=== PATIENT | male | born 1930 | race Caucasian/White ===

== ENCOUNTER 2018-03-04 11:19 | Emergency (ER) | payer OTHER, MEDICARE ==
[~2018-03-04] VITALS: Ht 172.7 cm; Wt 68.9 kg
[2018-03-04 11:24] VITALS: BP 161/81
--- NOTE | 2018-03-04 12:55 | CT SCAN REPORT ---
EXAMINATION: CT HEAD W/O IV CONTRAST CT CERVICAL SPINE W/O IV CONTRAST CLINICAL INFORMATION: History of fall with head strike and neck pain. COMPARISON: None TECHNIQUE: Head - Contiguous axial imaging of the head was performed from the skull base to the vertex without the administration of intravenous contrast, and axial images are reconstructed at 0.625 mm, 2.5 mm and 5 mm slice thickness. Cervical spine - A volumetric, helical CT acquisition of the cervical spine was obtained without contrast; in addition to the standard set of axial images, multiplanar reformatted images were provided in the coronal and sagittal imaging planes. DLP: 946 mGy-cm (total) FINDINGS: HEAD: No acute intracranial hemorrhage, extraaxial fluid collection, mass or midline shift. Moderate atrophy of cerebral and cerebellar hemispheres with commensurate prominence of ventricles and sulci. No hydrocephalus. There is patchy hypoattenuation within supratentorial white matter consistent with chronic, mild microangiopathy. Prominent perivascular spaces are seen inferior to the basal ganglia. The millan-white matter differentiation is well preserved; no acute major vascular territory infarction. Atherosclerotic calcification of cavernous carotid arteries. The calvarium is intact and the mastoid air cells, middle ear cavities and paranasal sinuses are well aerated. The temporomandibular joints, orbits and globes are unremarkable. CERVICAL SPINE: Bones appear diffusely osteoporotic. The cervical spine has normal lordotic curvature. The occipital condyles, C1 and C2 lateral masses, dens and atlantodental articulation are intact. There is degenerative osseous spurring at the atlantodental articulation. The vertebra are normal in height. No fractures in anterior or posterior elements. There is multilevel disc degeneration and osteophyte formation of the cervical spine. Multilevel facet osteoarthritis, as well, including severe right-sided facet osteoarthritis of C2-C3 and moderate left-sided facet osteoarthritis of C7-T1. There is minimal degenerative retrolisthesis at C4-C5 and minimal degenerative anterolisthesis at C7-T1. No prevertebral soft tissue swelling. The posterior disc osteophyte complex at C4-C5 produces mild narrowing of the central spinal canal. The uncovertebral joint hypertrophy at C4-C5 produces bilateral neural foraminal stenosis. At C5-C6, there is moderate degenerative disc disease and predominantly right-sided uncovertebral joint hypertrophy producing moderate right-sided neural foraminal stenosis. The visualized lung apices are clear. Thyroid gland is atrophied. No soft tissue hematoma in the neck. The sap pp consultant image shows a left pectoral region cardiac pacemaker with transvenous leads extending to the right atrium and ventricle. IMPRESSION: 1. No acute intracranial pathology. 2. Moderate cerebral atrophy and chronic, mild small vessel ischemic changes in supratentorial white matter. 3. No fracture or traumatic subluxation in the degenerated cervical spine.
--- NOTE | 2018-03-04 13:04 | ED MVC/FALL/TRAUMA COMPLAINT ---
History of Present Illness General Chief Complaint: Fall Stated Complaint: S/P FALL HEAD INJURY Source: patient, family Exam Limitations: no limitations Vital Signs & Intake/Output Vital Signs & Intake/Output ED Intake and Output 03/05 0000 03/04 1200 Intake Total Output Total Balance Patient 152 lb Weight Weight Reported by Patient Measurement Method Triage Note: PT TO ED FOR C/C HEAD PAIN AND BRUISE S/P MECHANICAL TRIP AND FALL YESTERDAY. DENIES DIZZINESS, CHANGE IN VISION. -BLOOD THINNERS, -CSPINE TENDERNESS. Triage Nurses Notes Reviewed? yes Onset: Abrupt Duration: day(s): (1), constant, continues in ED Timing: single episode today Severity: mild, moderate Severity Numbers: 7 Injuries/Fall Location: head Method of Injury: fall Loss of Consciousness: no loss of consciousness No Modifying Factors: none HPI: 87-year-old male history of CHF and hypertension presents for evaluation after a fall. Patient reports that he tripped and fell forward hitting the forehead. No loss of consciousness no other injuries. pt was able to get up on his own. He reports he has a mild headache. No blood thinners no changes in vision. He' s been walking without difficulty. He does report some mild neck pain. No numbness or tingling no chest pain shortness of breath. There is no dizziness or lightheadedness before the fall. (Jayesh Hanley) Past History Travel History Traveled to [place] past 21 day No Medical History Any Pertinent Medical History? see below for history Cardiovascular: CHF, hypertension Surgical History Surgical History: non-contributory Psychosocial History What is your primary language Slovak Tobacco Use: Never used ETOH Use: denies use Illicit Drug Use: denies illicit drug use Family History Hx Contributory? No (Jayesh Hanley) Review of Systems Review of Systems Constitutional: Reports: no symptoms. Eyes: Reports: no symptoms. Ears, Nose, Throat, Mouth: Reports: no symptoms. Respiratory: Reports: no symptoms. Cardiovascular: Reports: no symptoms. Gastrointestinal/Abdominal: Reports: no symptoms. Genitourinary: Reports: no symptoms. Musculoskeletal: Reports: see HPI, muscle pain, muscle stiffness, neck pain. Skin: Reports: no symptoms. Neurological/Psychological: Reports: headache. All Other Systems: Reviewed and Negative (Jayesh Hanley) Physical Exam Physical Exam General Appearance: well developed/nourished, no apparent distress, alert, awake Head: there is a contusion to the left side of the forehead. No abrasions. No scalp hematomas or lacerations. Eyes: Bilateral: normal appearance, PERRL, EOMI. Ears, Nose, Throat, Mouth: moist mucous membrane, Tympanic normal Neck: normal inspection, supple, full range of motion, paraspinous muscle tender (bilaterally), no midline tenderness, paraspinous muscles are tender to palpation bilaterally no tenderness of the clavicles or acromioclavicular jointno tenderness of the scapulas Respiratory: normal breath sounds, chest non-tender, no respiratory distress, lungs clear Cardiovascular: regular rate/rhythm, normal peripheral pulses Peripheral Pulses: 2+ radial (R), 2+ radial (L) Gastrointestinal: soft, non-tender Back: normal inspection, normal range of motion, no vertebral tenderness Extremities: normal range of motion, no joint swelling or pain Neurologic/Psych: no motor/sensory deficits, awake, alert, oriented x 3, normal gait, normal mood/affect Skin: intact, normal color, warm/dry Core Measures ACS in differential dx? No CVA/TIA Diagnosis No Sepsis Present: No Sepsis Focused Exam Completed? No (Darrion MACHADO,Jayesh) Progress Differential Diagnosis: C/T/L spine injury, ext injury, ICH, pelvis injury, pnemothorax, spinal cord injury, concussion, contusion Plan of Care: Patient is here after a fall with head strike. The fall was mechanical. Patient has some bruising to the forehead. No blood thinners. No other signs of trauma. A CT scan of the head and cervical spine was obtained and is negative for acute trauma. Patient has a steady gait. Mental status is at baseline. Advised rest ice and Tylenol for pain. Follow-up with primary care doctor discussed return precautions patient agrees the plan Diagnostic Imaging: Viewed by Me: CT Scan. Discussed w/RAD: CT Scan. Radiology Impression: PATIENT: RUSTY GOINS PRESENT AGE: 87 PATIENT ACCOUNT NO: [id number] : [birth year] LOCATION: [facility] ORDERING PHYSICIAN: Jayesh MACHADO SERVICE DATE: 03/04/18 EXAM TYPE: CAT - CT CERV SPINE WO IV CONTRAST; CT HEAD WO IV CONTRAST EXAMINATION: CT HEAD W/O IV CONTRAST CT CERVICAL SPINE W/O IV CONTRAST CLINICAL INFORMATION: History of fall with head strike and neck pain. COMPARISON: None TECHNIQUE: Head - Contiguous axial imaging of the head was performed from the skull base to the vertex without the administration of intravenous contrast, and axial images are reconstructed at 0.625 mm, 2.5 mm and 5 mm slice thickness. Cervical spine - A volumetric, helical CT acquisition of the cervical spine was obtained without contrast; in addition to the standard set of axial images, multiplanar reformatted images were provided in the coronal and sagittal imaging planes. DLP : 946 mGy-cm (total) FINDINGS: HEAD: No acute intracranial hemorrhage, extraaxial fluid collection, mass or midline shift. Moderate atrophy of cerebral and cerebellar hemispheres with commensurate prominence of ventricles and sulci. No hydrocephalus. There is patchy hypoattenuation within supratentorial white matter consistent with chronic, mild microangiopathy. Prominent perivascular spaces are seen inferior to the basal ganglia. The millan-white matter differentiation is well preserved; no acute major vascular territory infarction. Atherosclerotic calcification of cavernous carotid arteries. The calvarium is intact and the mastoid air cells, middle ear cavities and paranasal sinuses are well aerated. The temporomandibular joints, orbits and globes are unremarkable. CERVICAL SPINE: Bones appear diffusely osteoporotic. The cervical spine has normal lordotic curvature. The occipital condyles, C1 and C2 lateral masses, dens and atlantodental articulation are intact. There is degenerative osseous spurring at the atlantodental articulation. The vertebra are normal in height. No fractures in anterior or posterior elements. There is multilevel disc degeneration and osteophyte formation of the cervical spine. Multilevel facet osteoarthritis, as well, including severe right-sided facet osteoarthritis of C2 -C3 and moderate left-sided facet osteoarthritis of C7-T1. There is minimal degenerative retrolisthesis at C4-C5 and minimal degenerative anterolisthesis at C7-T1. No prevertebral soft tissue swelling. The posterior disc osteophyte complex at C4-C5 produces mild narrowing of the central spinal canal. The uncovertebral joint hypertrophy at C4-C5 produces bilateral neural foraminal stenosis. At C5-C6, there is moderate degenerative disc disease and predominantly right-sided uncovertebral joint hypertrophy producing moderate right-sided neural foraminal stenosis. The visualized lung apices are clear. Thyroid gland is atrophied. No soft tissue hematoma in the neck. The nurse staff community health image shows a left pectoral region cardiac pacemaker with transvenous leads extending to the right atrium and ventricle. IMPRESSION: 1. No acute intracranial pathology. 2. Moderate cerebral atrophy and chronic, mild small vessel ischemic changes in supratentorial white matter. 3. No fracture or traumatic subluxation in the degenerated cervical spine. DICTATED BY: Clemente Rhoades MD DATE/TIME DICTATED:03/04/181239 CONTINUITY EDITOR:MARION DATE/TIME TRANSCRIBED:1239 CONFIDENTIAL, DO NOT COPY WITHOUT APPROPRIATE AUTHORIZATION. (Jayesh Hanley) Departure Departure Disposition: HOME OR SELF CARE Condition: Stable Clinical Impression Primary Impression: Head injury Qualifiers: Encounter type: initial encounter Qualified Code: S09.90XA - Unspecified injury of head, initial encounter Referrals: Evelin Triana MD (PCP/Family) Additional Instructions: Rest, Tylenol for pain follow-up with your doctor for recheck return with any concerns. Departure Forms: Customer Survey General Discharge Information (Jayesh Hanley) PA/BOAT PULLER Co-Sign Statement Statement: ED Attending supervision documentation- [x] I saw and evaluated the patient. I have also reviewed all the pertinent lab results and diagnostic results. I agree with the findings and the plan of care as documented in the PA's/BOAT PULLER's documentation. [] I have reviewed the ED Record and agree with the PA's/BOAT PULLER's documentation. [] Additions or exceptions (if any) to the PAs/BOAT PULLER's note and plan are summarized below: [] 87-year-old comes in after mechanical fall due to tripping. He reports head injury. Imaging is negative the head and neck. Rest of the trauma exam is negative. Patient denies any preceding symptoms. Refused medical workup. We will discharge him home with head injury warnings. (Latosha Rashid MD) [] Additions or exceptions (if any) to the PAs/BOAT PULLER's note and plan are summarized below: [] 87-year-old comes in after mechanical fall due to tripping. He reports head injury. Imaging is negative the head and neck. Rest of the trauma exam is negative. Patient denies any preceding symptoms. Refused medical workup. We will discharge him home with head injury warnings. (Latosha Rashid MD)
== END 2018-03-04 13:38 ==
LOC: ERH 11:19
DX: S09.90XA Unspecified injury of head, initial encounter (principal); M54.2 Cervicalgia; I10 Essential (primary) hypertension; I50.9 Heart failure, unspecified; W01.0XXA Fall on same level from slipping, tripping and stumbling without subsequent striking against object, initial encounter